=== PATIENT | male | born 2000 | race Hispanic/Latino ===

== ENCOUNTER 2021-01-10 10:32 | Outpatient (CLI) | payer BC ==
[2021-01-10 21:21] LABS: SARS-CoV-2 PCR by NAA Not Detected (NotDetected)
== END 2021-01-10 10:33 | disposition home or self-care (01) ==
LOC: CSHLAB 10:32
PROVIDERS: ATTEND Otolaryngology Otolaryngic Allergy
DX: Z20.822 Contact with and (suspected) exposure to COVID-19 (principal); E05.90 Thyrotoxicosis, unspecified without thyrotoxic crisis or storm
CPT/HCPCS: 76536; 87635; U0003; U0005

== ENCOUNTER 2021-01-10 10:55 | Outpatient (CLI) | payer BC | END 2021-01-10 10:56 | disposition home or self-care (01) | LOC: CSHULT 10:55 | PROVIDERS: ATTEND Otolaryngology Otolaryngic Allergy | DX: E05.90 Thyrotoxicosis, unspecified without thyrotoxic crisis or storm (principal); E07.9 Disorder of thyroid, unspecified | CPT/HCPCS: 76536 ==

== ENCOUNTER 2021-01-15 09:22 | Observation (INO) | payer BC ==
[2021-01-11 14:56] VITALS: BMI 24.3
[2021-01-15] MEDS ORDERED: Lidocaine 1% w/Epinephrine 1:100K 20 ML VIAL ONE (10:04)
[2021-01-15] MEDS ORDERED: PROPOFOL 20 ML ONE ×2 (10:12→11:42)
[2021-01-15] MEDS ORDERED: Fentanyl 250 MCG/5 ML VIAL ONE (10:12)
[2021-01-15] MEDS ORDERED: Dexamethasone 20 MG/5 ML VIAL ONE (10:13)
[2021-01-15] MEDS ORDERED: Lidocaine 1% PF 5 ML VIAL ONE (10:13)
[2021-01-15] MEDS ORDERED: Rocuronium Bromide 10 MG/ML (10ML VIAL) ONE (10:13)
[2021-01-15] MEDS ORDERED: Midazolam HCl 2 mg/2 ml Vial ONE ×2 (10:13→10:58)
[2021-01-15] MEDS ORDERED: Ondansetron PF 4 MG/2 ML Vial ONE (10:13)
[2021-01-15] MEDS ORDERED: Lidocaine 1% MPF 2 ML VIAL ONE (10:40)
[2021-01-15] MEDS ORDERED: CEFAZOLIN 1 GM VIAL ONE (10:54)
[2021-01-15] MEDS ORDERED: Fentanyl 100 MCG/2 ML VIAL ONE (12:26)
[2021-01-15] MEDS ORDERED: Ondansetron PF 4 MG/2 ML Vial IVP PRN (12:53)
[2021-01-15] MEDS ORDERED: Ondansetron ODT 4 MG TAB PO PRN (12:53)
[2021-01-15] MEDS ORDERED: Acetaminophen 325 MG TAB PO PRN (12:53)
[2021-01-15] MEDS ORDERED: HYDROcodone/Acetaminophen 5/325 mg Tablet PO PRN (12:53)
[2021-01-15] MEDS ORDERED: Morphine 2 MG/ML VIAL ONE (13:38)
[2021-01-15] MEDS: Calcium Carbonate 600 MG TAB PO SCH ×2 (15:40→20:33)
[2021-01-15] MEDS: HYDROcodone/Acetaminophen 5/325 mg Tablet PO PRN (21:21)
[2021-01-16] MEDS: HYDROcodone/Acetaminophen 5/325 mg Tablet PO PRN (02:21)
[2021-01-16] MEDS: Calcium Carbonate 600 MG TAB PO SCH (08:10)
[2021-01-16] MEDS ORDERED: Propranolol HCl 20 MG TAB PO SCH (09:00)
[2021-01-16] MEDS ORDERED: Methimazole 5 MG TAB PO SCH (09:00)
[2021-01-16 09:56] VITALS: BP 105/51; TEMP 97.9
== END 2021-01-16 09:28 | disposition home or self-care (01) ==
LOC: CSHSDC 09:22 → CSHIMCU 12:53 → INTOOBSV 16:27 → UNDOADMOB 16:27 → CSHIMCU 16:27
PROVIDERS: ADMIT Otolaryngology Otolaryngic Allergy; ATTEND Otolaryngology Otolaryngic Allergy
PROC: 0GTK0ZZ Resection of Thyroid Gland, Open Approach (ICD-10-PCS; principal; 2021-01-15)
PROC: 0GBJ0ZZ Excision of Thyroid Gland Isthmus, Open Approach (ICD-10-PCS; 2021-01-15)
DX: E05.90 Thyrotoxicosis, unspecified without thyrotoxic crisis or storm (principal); Z79.899 Other long term (current) drug therapy
CPT/HCPCS: 36415; 82310; 83970; 88307; G0378; J0690; J1100; J2250; J2270; J2405; J2704; J3010

== ENCOUNTER 2022-05-22 10:31 | Outpatient (CLI) | payer BC | END 2022-05-22 10:32 | disposition home or self-care (01) | LOC: CSHRAD 10:31 | PROVIDERS: ATTEND Family Medicine | DX: M54.50 Low back pain, unspecified (principal) | CPT/HCPCS: 72100 ==